=== PATIENT | female | born 1985 | race Caucasian/White ===

== ENCOUNTER 2016-05-27 07:40 | Day surgery (SDC) | payer OTHER ==
[2016-05-24 08:30] VITALS: BMI 28.3
[~2016-05-27 07:40] MED LIST: DEXAMETHASONE SOD PHOSPHATE 10 MG/ML 1 ML VIAL IV ONE; HEPARIN SODIUM,PORCINE 5,000 UNIT/ML 1 ML VIAL SQ ONE; HYDROmorphone 1 MG/ML 1 ML SYRINGE IVP PRN; LACTATED RINGERS 1,000 ML IV SCH; LIDOCAINE 1% 20 ML VIAL (10MG/ML) FOR IV START INTRADERMA PRN; MIDAZOLAM 2 MG/2 ML VIAL IV PRN; ONDANSETRON 4 MG/2 ML VIAL IVP ONE; Pre Op ABX Message 1 EACH MISC MISCELLANE ONE; SCOPOLAMINE 1.5MG/72HR PATCH TRANSDERM ONE
[2016-05-27] MEDS ORDERED: LIDOCAINE 1% 20 ML VIAL (10MG/ML) FOR IV START INTRADERMA ONE (08:03)
--- NOTE | 2016-05-27 09:01 | P.GSHP ---
History of Present Illness H&P Date: 05/27/16 Chief Complaint: Cholelithiasis, right upper quadrant pain This is a 30-year-old female who presents today for laparoscopic cholecystectomy. Patient has had complaints of right upper quadrant pain. Recent ultrasound shows evidence of cholelithiasis. 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 History of Any Multi-Drug Resistant Organisms: None Reported Past Surgical History: Section Past Anesthesia/Blood Transfusion Reactions: Postoperative Nausea & Vomiting ( PONV) Past Psychological History: No Psychological Hx Reported Smoking Status: Heavy tobacco smoker Past Alcohol Use History: Rare Additional Past Alcohol Use History / Comment(s): SMOKES 1PPD. SMOKING SINCE AGE 15 (15 YRS) Past Drug Use History: None Reported - Past Family History Mother Family Medical History: Asthma Medications and Allergies Home Medications Medication Instructions Recorded Confirmed Type Ibuprofen [Motrin] 600 mg PO DIRECTED PRN 05/24/16 05/27/16 History Albuterol Inhaler [Ventolin Hfa 1 - 2 puff INHALATION Q6HR PRN 05/27/16 History Inhaler] Allergies Allergy/AdvReac Type Severity Reaction Status Date / Time morphine Allergy Rash/Hives Verified 05/27/16 08:11 Surgical - Exam Vital Signs Temp Pulse Resp BP Pulse Ox 97.7 F 56 L 16 105/50 97 05/27/16 08:09 05/27/16 08:09 05/27/16 08:09 05/27/16 08:09 05/27/16 08:09 - General well developed, no distress - Eyes PERRL - ENT normal pinna - Neck no masses - Respiratory normal expansion - Cardiovascular Rhythm: regular - Abdomen Abdomen: soft, non tender Assessment and Plan Plan: Symptomatic cholelithiasis, chronic close sinus. We'll perform laparoscopic cholecystectomy
[2016-05-27] MEDS ORDERED: SUCCINYLCHOLINE CHLORIDE 100 MG/5 ML SYR IV ONE (09:23)
[2016-05-27] MEDS ORDERED: PROPOFOL 10 MG/ML 20 ML VIAL IV ONE (09:23)
[2016-05-27] MEDS ORDERED: GLYCOPYRROLATE 0.2 MG/ML 2 ML VIAL ONE (09:23)
[2016-05-27] MEDS ORDERED: NEOSTIGMINE 1 MG/ML 10 ML VIAL ONE (09:23)
[2016-05-27] MEDS ORDERED: MIDAZOLAM 2 MG/2 ML VIAL ONE (09:23)
[2016-05-27] MEDS ORDERED: LIDOCAINE 1% INJ 10MG/ML (20 ML MDV) ONE (09:23)
[2016-05-27] MEDS ORDERED: HYDROmorphone (PF) 1 MG/ML ONE (09:23)
[2016-05-27] MEDS ORDERED: fentaNYL (PF) 50 MCG/ML 2 ML AMP ONE (09:23)
[2016-05-27] MEDS ORDERED: ROCURONIUM BROMIDE 10 MG/ML 10 ML VIAL IV ONE (09:23)
[2016-05-27] MEDS ORDERED: SODIUM CHLORIDE 0.9% 50 ML with ceFAZolin 2,000 MG IV ONE ×2 (09:42)
[2016-05-27] MEDS ORDERED: BUPIVACAIN-EPI 0.25%-1:200,000 30 ML VIAL SQ ONE (09:43)
--- NOTE | 2016-05-27 10:06 | P.OP ---
Date of Procedure: 05/27/16 Preoperative Diagnosis: Cholelithiasis Cholecystitis Postoperative Diagnosis: Cholelithiasis Cholecystitis Procedure(s) Performed: Laparoscopic cholecystectomy Anesthesia: BENNY Surgeon: Shravan Toure Estimated Blood Loss (ml): 5 Pathology: other (Gallbladder) Condition: stable Disposition: PACU Description of Procedure: The patient was placed on the operating table. The patient received a general endotracheal tube anesthesia. The patients abdomen was prepped and draped in the usual sterile fashion. Through an infraumbilical stab incision, the fascia of the anterior abdominal wall was grasped with a pair of Kochers and then the Veress needle was placed in the peritoneal cavity. Position of the Veress needle was confirmed with positive drop test. The abdomen was then insufflated. After adequate insufflation, the 10 mm trocar was placed in the peritoneal cavity. Following this the laparoscope was placed in the peritoneal cavity. The patient was placed in the head-up, right side up position and then a 5 mm trocar was placed in the right lateral and right subcostal position under direct visualization. A 8 mm trocar was placed in the epigastric position. The gallbladder was grasped in the fundus and infundibulum. Traction on the gallbladder was placed in the lateral and the cephalad positions. The triangle of Calot was visualized.. The cystic duct was bluntly dissected until the union of the cystic duct and common bile duct was seen. The cystic duct was then divided and sealed with the Harmonic scissors. A PDS Endoloop was then placed throughout the cystic duct stump. The cystic artery divided and sealed with the Harmonic scissors. The gallbladder was then removed from the liver bed using Harmonic scissors. The gallbladder was then extracted through the epigastric port site. Operative field was checked for any bleeding spots and Harmonic scissors was used to coagulate the liver bed. The abdomen was irrigated. The trocars were removed. The skin was closed using interrupted 3-0 Vicryl suture. Dermabond dressing were applied. The patient tolerated the procedure well.
[2016-05-27 10:15] VITALS: TEMP 97.1
[2016-05-27 10:41] VITALS: RESP 16
[2016-05-27 11:42] VITALS: BP 117/68; PULSE 71
== END 2016-05-27 11:42 | disposition home or self-care (01) ==
LOC: OR 07:40
PROVIDERS: ATTEND Surgery
DX: K80.10 Calculus of gallbladder with chronic cholecystitis without obstruction (principal); J45.909 Unspecified asthma, uncomplicated; F17.200 Nicotine dependence, unspecified, uncomplicated; Z79.1 Long term (current) use of non-steroidal anti-inflammatories (NSAID); Z79.899 Other long term (current) drug therapy; Z88.5 Allergy status to narcotic agent
CPT/HCPCS: 81025; 88304; 47562; J2250; J1644; J1100; J2710; J2405; J2001; J3010; J1170; J0690; J0330; J2704

== ENCOUNTER → 2016-09-23 | Outpatient (CLI) | payer OTHER ==
[2016-09-23 12:00] LABS: Basophils # (A) 0.1 k/uL (0-0.2); Basophils % (A) 2 %; CH 28.2; CHCM 32.4; Eosinophils # (A) 0.1 k/uL (0-0.7); Eosinophils % (A) 1 %; HCT 45.2 % (34.0-46.0); HDW 2.69; HGB 14.8 gm/dL (11.4-16.0); Luc # (Auto) 0.16; Luc % (Auto) 2; Lymphocytes # (A) 2.8 k/uL (1.0-4.8); Lymphocytes % (A) 33 %; MCH 28.5 pg (25.0-35.0); MCHC 32.6 g/dL (31.0-37.0); MCV 87.4 fL (80.0-100.0); Mean Platelet Volume 7.8; Monocytes # (A) 0.3 k/uL (0-1.0); Monocytes % (A) 3 %; Neutrophils # (A) 4.9 k/uL (1.3-7.7); Neutrophils % (A) 59 %; RBC 5.17 m/uL (3.80-5.40); RDW 14.4 % (11.5-15.5); WBC 8.3 k/uL (3.8-10.6); WBC (Perox) 8.16
== END | disposition home or self-care (01) ==
LOC: LABPAT 11:19
PROVIDERS: ATTEND Obstetrics & Gynecology
DX: Z01.812 Encounter for preprocedural laboratory examination (principal)
CPT/HCPCS: 85025

== ENCOUNTER 2016-09-26 08:41 | Day surgery (SDC) | payer OTHER ==
[2016-09-23 10:57] VITALS: BMI 30.2
[~2016-09-26 08:41] MED LIST changes: -HEPARIN SODIUM,PORCINE 5,000 UNIT/ML 1 ML VIAL SQ ONE; -MIDAZOLAM 2 MG/2 ML VIAL IV PRN
[2016-09-26] MEDS ORDERED: LACTATED RINGERS 1,000 ML IV ONE ×2 (08:58→11:31)
--- NOTE | 2016-09-26 10:41 | P.HPOB ---
History of Present Illness H&P Date: 09/26/16 Chief Complaint: Cervical dysplasia and external condyloma Lisa is a 31-year-old female with high-grade squamous interested lesion. She is scheduled for LEEP colposcopy for same. It is also noted that she has several condyloma which we will remove at the same time at her request. Risks/ benefits/alternatives to this procedure were discussed with patient in detail and all questions are answered for prior to proceeding to the operative room and was discussed with patient that the larger lesions we will remove at the time of surgery. It is possible that we will leave some of the smaller ones to be frozen in the office depending on what everything looks like during the surgery. On physical exam vital signs are stable and afebrile. Heart regular, lungs clear, extremities without pain. Abdomen soft nontender. Pelvic exam as above. Assessment high-grade lesions on cervix and condyloma. Plan LEEP colposcopy an excisional biopsy of condyloma. 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 History of Any Multi-Drug Resistant Organisms: None Reported Past Surgical History: Section, Cholecystectomy Past Anesthesia/Blood Transfusion Reactions: Postoperative Nausea & Vomiting ( PONV) Past Psychological History: No Psychological Hx Reported Smoking Status: Heavy tobacco smoker Past Alcohol Use History: Rare Additional Past Alcohol Use History / Comment(s): SMOKES 1PPD. SMOKING SINCE AGE 15 (15 YRS) Past Drug Use History: None Reported - Past Family History Mother Family Medical History: Asthma Medications and Allergies Home Medications Medication Instructions Recorded Confirmed Type No Known Home Medications [No 09/23/16 09/23/16 History Known Home Medications] Allergies Allergy/AdvReac Type Severity Reaction Status Date / Time morphine Allergy Rash/Hives Verified 09/23/16 10:46 Exam Osteopathic Statement: *. No significant issues noted on an osteopathic structural exam other than those noted in the History and Physical/Consult. - Vital Signs Vital signs: Vital Signs Temp Pulse Resp BP Pulse Ox 09/26/16 08:52 97.8 F 75 18 109/68 99
[2016-09-26] MEDS ORDERED: LIDOCAINE 1% INJ 10MG/ML (20 ML MDV) ONE (11:06)
[2016-09-26] MEDS ORDERED: PROPOFOL 10 MG/ML 20 ML VIAL IV ONE (11:06)
[2016-09-26] MEDS ORDERED: ALBUTEROL INHALER 60 PUFF/8 GM INHALER INHALATION ONE (11:06)
[2016-09-26] MEDS ORDERED: MIDAZOLAM 2 MG/2 ML VIAL ONE (11:06)
[2016-09-26] MEDS ORDERED: HYDROmorphone (PF) 1 MG/ML ONE (11:06)
[2016-09-26] MEDS ORDERED: fentaNYL (PF) 50 MCG/ML 2 ML AMP ONE (11:06)
[2016-09-26] MEDS ORDERED: BUPIVACAINE (PF) 0.25% 30 ML VIAL SQ ONE ×2 (11:30)
[2016-09-26] MEDS ORDERED: IODINE/POTASS IOD (LUGOLS) BTL TOPICAL ONE (11:31)
--- NOTE | 2016-09-26 11:50 | P.OP ---
Date of Procedure: 09/26/16 Preoperative Diagnosis: High grade cervical lesion with condyloma on the mons pubis Postoperative Diagnosis: Same Procedure(s) Performed: LEEp colposcopy with excisional biopsy of 9 Condyloma Implants: Anesthesia: HKOA ZAPATA Surgeon: Xander Carlton Estimated Blood Loss (ml): 50 Pathology: other (cervical hat and condyloma) Condition: stable Disposition: same day Indications for Procedure: Operative Findings: pending tissue evaluation Description of Procedure: Lisa was taken to the operating suite where a general anesthetic was found be adequate. She was prepped and draped in the normal sterile fashion and placed in the dorsal lithotomy position. Initially a coated speculum was inserted into the vagina and the ectocervix was covered in Lugol solution. Colposcope was then brought in and cervix was evaluated. 2 cm loop was then used to excise the ectocervix and inner portion of the endocervix. Once this tissue was collected ball-tipped cautery was then used to obtain excellent hemostasis. Once hemostasis was obtained attention was turned to the condyloma. Using quarter percent Marcaine to inject beneath the condyloma, condyloma were elevated and excised using a 15 blade just below the skin surface. Once condyloma were excised approximately 6 of them required suture to reapproximate the skin these were the largest 6 of the condyloma the condyloma range from approximately 0.3 cm to 1.2 cm in size. Once completed instruments were removed sponge, lap, needle counts were all correct 2 and patient was then taken to the recovery room in stable and satisfactory condition. Plan - Discharge Summary New Discharge Prescriptions: Ibuprofen [Motrin] 600 mg PO Q6HR PRN #30 tab PRN Reason: Pain Discharge Medication List Ibuprofen [Motrin] 600 mg PO Q6HR PRN #30 tab 09/26/16 [Rx] Follow up Appointment(s)/Referral(s): Xander Carlton DO [Doctor of Osteopathic Medicine] - 1 Week Patient Instructions/Handouts: *Surgery [facility] - (Anesthesia) Discharge Instructions Outpatient Surgery, *[facility] - Scopalamine Patch Instructions Activity/Diet/Wound Care/Special Instructions: No heavy lifting and pelvic rest. If any high temperatures, heavy bleeding or severe pain call my office Discharge Disposition: HOME SELF-CARE
[2016-09-26 12:06] VITALS: TEMP 96.8
[2016-09-26 12:36] VITALS: RESP 18
[2016-09-26 12:37] VITALS: PULSE 94
[2016-09-26 12:38] VITALS: BP 112/65
== END 2016-09-26 13:05 | disposition home or self-care (01) ==
LOC: OR 08:41
PROVIDERS: ATTEND Obstetrics & Gynecology
DX: D06.7 Carcinoma in situ of other parts of cervix (principal); A63.0 Anogenital (venereal) warts; J45.909 Unspecified asthma, uncomplicated; J44.9 Chronic obstructive pulmonary disease, unspecified; R87.612 Low grade squamous intraepithelial lesion on cytologic smear of cervix (LGSIL); F17.200 Nicotine dependence, unspecified, uncomplicated; Z88.5 Allergy status to narcotic agent
CPT/HCPCS: 81025; 88305; 57460; J2250; J1100; J2405; J2001; J3010; J1170; J2704

== ENCOUNTER 2018-07-06 05:53 | Inpatient (IN) | payer OTHER ==
[2018-07-06] MEDS ORDERED: METHYLERGONOVINE 0.2 MG/ML 1 ML AMP IM PRN (06:07)
[2018-07-06] MEDS ORDERED: CARBOPROST TROMETHAMINE 250 MCG/ML 1 ML AMP IM PRN (06:07)
[2018-07-06] MEDS ORDERED: TERBUTALINE 1 MG/ML VIAL SQ PRN (06:07)
[2018-07-06] MEDS ORDERED: OXYTOCIN 10 UNIT/ML 1 ML VIAL IM PRN (06:07)
[2018-07-06] MEDS ORDERED: LIDOCAINE 0.5% (PF) 5 MG/ML (50 ML SDV) SQ PRN (06:07)
[2018-07-06] MEDS ORDERED: OXYTOCIN 30 UNITS/500 ML NS 30 UNIT in SALINE 1 500ML.BAG IV SCH (06:15)
[2018-07-06 06:16] VITALS: BMI 33.1
[2018-07-06] MEDS: LACTATED RINGERS 1,000 ML IV SCH ×2 (06:28→09:30)
[2018-07-06 06:36] LABS: Basophils # (A) 0.1 k/uL (0-0.2); Basophils % (A) 1 %; Eosinophils # (A) 0.1 k/uL (0-0.7); Eosinophils % (A) 1 %; HCT 36.7 % (34.0-46.0); HGB 12.2 gm/dL (11.4-16.0); Lymphocytes # (A) 2.1 k/uL (1.0-4.8); Lymphocytes % (A) 18 %; MCH 29.5 pg (25.0-35.0); MCHC 33.3 g/dL (31.0-37.0); MCV 88.5 fL (80.0-100.0); Mean Platelet Volume 7.8; Monocytes # (A) 0.4 k/uL (0-1.0); Monocytes % (A) 3 %; Neutrophils # (A) 8.8 k/uL (1.3-7.7); Neutrophils % (A) 76 %; Platelet Count 246 k/uL (150-450); RBC 4.15 m/uL (3.80-5.40); RDW 14.2 % (11.5-15.5); WBC 11.6 k/uL (3.8-10.6)
--- NOTE | 2018-07-06 08:27 | P.HPOB ---
History of Present Illness H&P Date: 07/06/18 Chief Complaint: IUP at 39-0/7 weeks, elective induction of labor This is a 32-year-old 5 para 4004 at 39-0/7 weeks with an estimated due date of 311 that presents for elective induction of labor. Patient has been receiving routine care with myself. Patient is a smoker. Today she presents for induction of labor she notes good movement denies contractions vaginal bleeding or loss of fluid. On blood work showed a blood type of B+, rubella immune, hepatitis B surface antigen is negative, HIV negative, RPR nonreactive, GBS negative. 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 History of Any Multi-Drug Resistant Organisms: None Reported Past Surgical History: Section, Cholecystectomy Past Anesthesia/Blood Transfusion Reactions: Postoperative Nausea & Vomiting ( PONV) Past Psychological History: No Psychological Hx Reported Smoking Status: Heavy tobacco smoker Past Alcohol Use History: Rare Additional Past Alcohol Use History / Comment(s): SMOKES 1PPD. SMOKING SINCE AGE 15 (15 YRS) Past Drug Use History: None Reported - Past Family History Mother Family Medical History: Asthma Medications and Allergies Allergies Allergy/AdvReac Type Severity Reaction Status Date / Time morphine Allergy Mild Rash/Hives Verified 07/06/18 06:06 Exam Osteopathic Statement: *. No significant issues noted on an osteopathic structural exam other than those noted in the History and Physical/Consult. Vital Signs Temp Pulse Resp BP 07/06/18 06:05 97.0 F L 89 16 108/74 Intake and Output 07/05/18 07/06/18 07/06/18 22:59 06:59 14:59 Other: Weight 74.389 kg Targeted physical exam was performed in the same general this is a well- nourished well-developed female in no acute distress she notes nonlabored breathing in her heart is known to have a regular rate and rhythm, abdomen is gravid and appropriate for gestational age, on cervical exam she is 3 , 70, -2 amniotomy is performed and clear fluid was obtained. heart tones are noted to be reassuring and she is deandre every 3 minutes. Results Result Diagrams: 07/06/18 06:20 Abnormal Lab Results - Last 24 Hours (Table) 07/06/18 Range/Units 06:20 WBC 11.6 H (3.8-10.6) k/uL Neutrophils # 8.8 H (1.3-7.7) k/uL Assessment and Plan (1) Term Current Visit: Yes Status: Acute Code(s): Z34.80 - ENCOUNTER FOR SUPRVSN OF NORMAL , UNSP TRIMESTER SNOMED Code(s): 76107741 (2) Smoker Current Visit: Yes Status: Acute Code(s): F17.200 - NICOTINE DEPENDENCE, UNSPECIFIED, UNCOMPLICATED SNOMED Code(s): 13383316 Plan: Patient is admitted to labor and delivery for Pitocin induction of labor, epidural per patient request. anticipate spontaneous vaginal delivery later today
[2018-07-06] MEDS ORDERED: ROPIVACAINE 5MG/ML 20ML VIAL ONE (08:59)
[2018-07-06] MEDS ORDERED: fentaNYL (PF) 50 MCG/ML 5 ML AMP ONE (08:59)
[2018-07-06] MEDS ORDERED: SODIUM CHLORIDE 0.9% 100 ML BAG ONE (08:59)
[2018-07-06] MEDS ORDERED: HYDROCORTISONE 2.5% RECTAL CREAM 30 GM TUBE RECTAL PRN (14:11)
[2018-07-06] MEDS ORDERED: ZOLPIDEM 5 MG TAB PO PRN (14:11)
[2018-07-06] MEDS ORDERED: diphenhydrAMINE 50 MG CAP PO PRN (14:11)
[2018-07-06] MEDS ORDERED: SIMETHICONE 80 MG CHEWABLE PO PRN (14:11)
[2018-07-06] MEDS ORDERED: BENZOCAINE/MENTHOL SPRAY 1 GM/SPRAY AEROSOL TOPICAL PRN (14:11)
[2018-07-06] MEDS ORDERED: diphenhydrAMINE 50 MG/ML 1 ML VIAL IVP PRN ×2 (14:11)
[2018-07-06] MEDS ORDERED: ACETAMINOPHEN TAB 325 MG TAB PO PRN (14:11)
[2018-07-06] MEDS ORDERED: LANOLIN CREAM 5 GM TUBE TOPICAL PRN (14:11)
[2018-07-06] MEDS ORDERED: WITCH HAZEL 1 EACH MED..PAD TOPICAL PRN (14:11)
[2018-07-06] MEDS ORDERED: diphenhydrAMINE 25 MG CAP PO PRN (14:11)
--- NOTE | 2018-07-06 14:14 | P.PROBDLV ---
Vaginal Delivery Note - . Vaginal Delivery Note: This is a 32-year-old 5 para 4004 at 39-0/7 weeks with an estimated due date of 07/13 that presented for elective induction of labor. Patient was admitted to labor and delivery and Pitocin induction of labor was begun. Patient underwent amniotomy and clear fluid was obtained. Patient progressed through labor eventually becoming uncomfortable and requesting an epidural. Patient had an epidural placed by anesthesia without difficulty. Patient progressed to complete and began pushing and had a normal spontaneous vaginal delivery of a viable female infant at 1359, weight of 6 lbs. 5 oz. with Apgars of 9 and 9 at one and 5 minutes respectively. After a two-minute delayed the umbilical cord was doubly clamped and cut and the placenta was delivered spontaneously intact with three-vessel cord being noted. Patient's uterus is known to be firm and below the umbilicus. Inspection the patient's vaginal vault a first-degree vaginal laceration along with a clitoral laceration was noted these were repaired with 4-0 chromic in the usual fashion. A red rubber catheter was used to drain the bladder of clear yellow urine which was passed easily. Estimated blood loss 300 mL. All counts were correct 2. Patient and tolerated delivery well and are resting comfortably
[2018-07-06] MEDS ORDERED: OXYTOCIN 20 UNITS/1000 ML NS 1,000 ML IV SCH (14:15)
[2018-07-06] MEDS: SENNOSIDES-DOCUSATE SODIUM 1 EACH TAB PO SCH (23:50)
[2018-07-07] MEDS: IBUPROFEN 600 MG TAB PO PRN ×2 (00:03→08:06)
[2018-07-07 06:53] LABS: Basophils % (A) 0 %; Eosinophils # (A) 0.1 k/uL (0-0.7); Eosinophils % (A) 1 %; HCT 32.8 % (34.0-46.0); HGB 10.4 gm/dL (11.4-16.0); Lymphocytes # (A) 1.4 k/uL (1.0-4.8); Lymphocytes % (A) 16 %; MCH 28.7 pg (25.0-35.0); MCHC 31.8 g/dL (31.0-37.0); MCV 90.1 fL (80.0-100.0); Mean Platelet Volume 7.6; Monocytes # (A) 0.4 k/uL (0-1.0); Monocytes % (A) 4 %; Neutrophils # (A) 6.9 k/uL (1.3-7.7); Neutrophils % (A) 78 %; Platelet Count 208 k/uL (150-450); RBC 3.64 m/uL (3.80-5.40); RDW 14.2 % (11.5-15.5); WBC 8.8 k/uL (3.8-10.6)
--- NOTE | 2018-07-07 10:20 | P.DS ---
Providers Date of admission: 07/06/18 05:53 Expected date of discharge: 07/07/18 Attending physician: Penelope Blanca Primary care physician: Stated None - Discharge Diagnosis(es) (1) Term Current Visit: Yes Status: Acute (2) Smoker Current Visit: Yes Status: Acute (3) Status post vaginal delivery Current Visit: Yes Status: Acute Hospital Course: This is a pleasant 32-year-old 5 para 4004 that presented to labor and delivery at 39 and 0 seconds sevenths weeks for elective induction of labor. Patient was admitted to labor and delivery and Pitocin induction of labor was begun. Patient underwent amniotomy and clear fluid was obtained. Patient pressed to complete began pushing and had a normal spontaneous vaginal delivery of a viable female at 1359, weight of 6 lbs. 5 oz. with Apgars of 9 and 9 at one and 5 minutes respectively. Patient did sustain a first-degree vaginal laceration along with a clitoral laceration which were repaired with 4- 0 chromic in normal fashion. Patient is feeling well this morning her course has been uneventful. She is a billing and voiding on this day #1. She states she is ready for discharge home. She is bottle feeding currently. Patient Condition at Discharge: Good Plan - Discharge Summary Discharge Rx Participant: No Follow up Appointment(s)/Referral(s): Penelope Blanca DO [Doctor of Osteopathic Medicine] - 4 Weeks Patient Instructions/Handouts: Vaginal Delivery (DC), Vaginal Delivery (GEN) Discharge Disposition: HOME SELF-CARE
[2018-07-07 12:25] VITALS: BP 120/64; PULSE 70; RESP 18; TEMP 97.8
[2018-07-07] MEDS: SENNOSIDES-DOCUSATE SODIUM 1 EACH TAB PO SCH (13:53)
== END 2018-07-07 14:59 | disposition home or self-care (01) | DRG 768 ==
LOC: 4FBP 05:53
PROVIDERS: ADMIT Obstetrics & Gynecology Obstetrics; ATTEND Obstetrics & Gynecology Obstetrics
PROC: 10E0XZZ Delivery of Products of Conception, External Approach (ICD-10-PCS; principal; 2018-07-06)
PROC: 0UQJXZZ Repair Clitoris, External Approach (ICD-10-PCS; 2018-07-06)
PROC: 0HQ9XZZ Repair Perineum Skin, External Approach (ICD-10-PCS; 2018-07-06)
PROC: 3E033VJ Introduction of Other Hormone into Peripheral Vein, Percutaneous Approach (ICD-10-PCS; 2018-07-06)
PROC: 10907ZC Drainage of Amniotic Fluid, Therapeutic from Products of Conception, Via Natural or Artificial Opening (ICD-10-PCS; 2018-07-06)
PROC: 00HU33Z Insertion of Infusion Device into Spinal Canal, Percutaneous Approach (ICD-10-PCS; 2018-07-06)
PROC: 3E0R3BZ Introduction of Anesthetic Agent into Spinal Canal, Percutaneous Approach (ICD-10-PCS; 2018-07-06)
DX: O34.211 Maternal care for low transverse scar from previous cesarean delivery (principal); Z37.0 Single live birth; O70.0 First degree perineal laceration during delivery; O71.89 Other specified obstetric trauma; Z3A.39 39 weeks gestation of pregnancy; O99.334 Smoking (tobacco) complicating childbirth; F17.210 Nicotine dependence, cigarettes, uncomplicated; O99.52 Diseases of the respiratory system complicating childbirth; J45.909 Unspecified asthma, uncomplicated; H91.91 Unspecified hearing loss, right ear; Z90.49 Acquired absence of other specified parts of digestive tract; Z88.5 Allergy status to narcotic agent; Z82.5 Family history of asthma and other chronic lower respiratory diseases
CPT/HCPCS: 85025; 86850; 86900; 86901

== ENCOUNTER 2018-07-08 20:13 | Emergency (ER) | payer OTHER ==
[2018-07-08 20:30] VITALS: BP 117/68; PULSE 83; RESP 18; TEMP 98.2
--- NOTE | 2018-07-08 21:26 | ED ---
Female Urogenital HPI - General Chief complaint: Urogenital Stated complaint: vaginal bleeding Time Seen by Provider: 07/08/18 20:31 Source: patient Mode of arrival: ambulatory Limitations: no limitations - History of Present Illness Initial comments: 32-year-old female presenting today for chief complaint of vaginal bleeding. Patient states she gave vaginally on 07/06/2018, 2 days prior she states that she did have slight tearing, she states she has never experienced this during a childbirth before. Pt . Patient states there was a dissolvable suture placed, she thought it was near her urethra. Patient denies episiotomy. Patient denies any heavy vaginal bleeding. She states there is a clearish pink blood that appears to be increase in comparison with her previous births. Patient was concerned about the bleeding and presented for evaluation. Patient states she is tender to palpation of the vagina. Patient denies any passage of large clots. Patient states she is changing her pad about every 2-4 hours. Patient denies dysuria, urgency, frequency, hematuria, bowel pain, fever, chills, night sweats, nausea, vomiting, chest pain, dyspnea, dyspnea on exertion, headache, visual changes or dizziness. Patient appears well upon arrival for signs acute distress. - Related Data Home Medications Medication Instructions Recorded Confirmed Acetaminophen Tab [Tylenol Tab] 650 mg PO Q6H PRN 07/08/18 07/08/18 Ibuprofen [Motrin Ib] 400 mg PO Q6H PRN 07/08/18 07/08/18 Allergies Allergy/AdvReac Type Severity Reaction Status Date / Time morphine Allergy Mild Rash/Hives Verified 07/08/18 21:00 Review of Systems ROS Statement: Those systems with pertinent positive or pertinent negative responses have been documented in the HPI. ROS Other: All systems not noted in ROS Statement are negative. 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 History of Any Multi-Drug Resistant Organisms: None Reported Past Surgical History: Section, Cholecystectomy Past Anesthesia/Blood Transfusion Reactions: Postoperative Nausea & Vomiting (PONV) Past Psychological History: No Psychological Hx Reported Smoking Status: Heavy tobacco smoker Past Alcohol Use History: Rare Past Drug Use History: None Reported - Past Family History Mother Family Medical History: Asthma General Exam - General Exam Comments Initial Comments: General: The patient is awake and alert, in no distress, and does not appear acutely ill. Eye: Pupils are equal, round and reactive to light, extra-ocular movements are intact. No nystagmus. There is normal conjunctiva bilaterally. No signs of icterus. Ears, nose, mouth and throat: There are moist mucous membranes and no oral lesions. Neck: The neck is supple, there is no tenderness or JVD. Cardiovascular: There is a regular rate and rhythm. No murmur, rub or gallop is appreciated. Respiratory: Lungs are clear to auscultation, respirations are non-labored, breath sounds are equal. No wheezes, stridor, rales, or rhonchi. Gastrointestinal: Soft, non-distended, non-tender abdomen without masses or organomegaly noted. There is no rebound or guarding present. No CVA tenderness. Bowel sounds are unremarkable. External vaginal exam: Suture at 7oclock in introitus, no bright red blood. No evidence of heavy vaginal bleeding. Mild serosanguineous fluid. Mild tenderness to palpation of external genitalia near suture. Musculoskeletal: Normal ROM, no tenderness. Strength 5/5. Sensation intact. Pulses equal bilaterally 2+. Neurological: A&O x 3. CN II-XII intact, There are no obvious motor or sensory deficits. Coordination appears grossly intact. Speech is normal. Skin: Skin is warm and dry and no rashes or lesions are noted. Psychiatric: Cooperative, appropriate mood & affect, normal judgment. Limitations: no limitations Course Vital Signs 07/08/18 20:28 Temperature 98.2 F Pulse Rate 83 Respiratory 18 Rate Blood Pressure 117/68 O2 Sat by Pulse 99 Oximetry Medical Decision Making - Medical Decision Making 32-year-old female with recent vaginal . Patient did have tearing of the introitus. Suture intact. Serosanguineous discharge. No heavy vaginal bleeding. This acidosis consistent with recent . Patient has no complaints of abdominal pain. No pedal patient the abdomen or uterus. No fever or chills night sweats. No overt infectious symptoms. At this time after di scussed the case in detail to take provider we feel this is normal findings post vaginal and patient is to f/u with OBGYN as scheduled and return for any abdominal pain, heavy bleeding/persistent bleeding, vaginal discharge, fever, chills or nightweats-or any other concerning symptoms. She states she is ready to get out of here. Pt discharged appearing well after discussing case in detail with Dr. Márquez. Patient verbalized understanding of all return parameters deny questions upon discharge. Disposition Clinical Impression: Vaginal bleeding Disposition: HOME SELF-CARE Condition: Good Instructions (If sedation given, give patient instructions): Vaginal Delivery ( DC) Additional Instructions: Please use medication as discussed. Please follow-up with Dr. Blanca as scheduled. Please return to emergency room if the symptoms increase or worsen or for any other concerns, fever, heavy bleeding, abdominal pain. Is patient prescribed a controlled substance at d/c from ED?: No Referrals: Shira Miranda MD [Primary Care Provider] - 1-2 days Penelope Blanca DO [Doctor of Osteopathic Medicine] - 1-2 days Time of Disposition: 21:26
== END 2018-07-08 21:30 | disposition home or self-care (01) ==
LOC: EC 20:13
DX: O72.2 Delayed and secondary postpartum hemorrhage (principal); O99.335 Smoking (tobacco) complicating the puerperium; F17.200 Nicotine dependence, unspecified, uncomplicated; Z88.5 Allergy status to narcotic agent
CPT/HCPCS: 99283

== ENCOUNTER 2018-07-12 13:32 | Emergency (ER) | payer OTHER ==
[2018-07-12 13:36] VITALS: BP 132/74; PULSE 82; RESP 18; TEMP 98.1
--- NOTE | 2018-07-12 15:39 | ED ---
General Adult HPI - General Chief complaint: Wound/Laceration Stated complaint: female Time Seen by Provider: 07/12/18 14:09 Source: patient, RN notes reviewed, old records reviewed Mode of arrival: ambulatory Limitations: no limitations - History of Present Illness Initial comments: 32-year-old female patient who presents one week after vaginal delivery presents to ED with bump and burning and vaginal region. Patient reports that this bump additionally ernst when she gets urine on it. Denies dysuria. Patient denies any other complaints today. Systemic: Pt denies fatigue, myalgia, fever/chills, rash. Pt denies weakness, night sweats, weight loss. Neuro: Pt denies headache, visual disturbances, syncope or pre-syncope. HEENT: Pt denies ocular discharge or irritation, otalgia, rhinorrhea, pharyngitis or notable lymphadenopathy. Cardiopulmonary: Pt denies chest pain, SOB, heart palpitations, dyspnea on exertion. Abdominal/GI: Pt denies abdominal pain, n/v/d. : Pt denies dysuria, burning w/ urination, frequency/urgency. Denies new onset urinary or bowel incontinence. MSK: Pt denies myalgia, loss of strength or function in extremities. Neuro: Pt denies new onset weakness, paresthesias. - Related Data Home Medications Medication Instructions Recorded Confirmed Acetaminophen Tab [Tylenol Tab] 650 mg PO Q6H PRN 07/08/18 07/08/18 Ibuprofen [Motrin Ib] 400 mg PO Q6H PRN 07/08/18 07/08/18 Previous Rx's Medication Instructions Recorded Acyclovir 400 mg PO Q8HR 10 Days #30 tablet 07/12/18 Allergies Allergy/AdvReac Type Severity Reaction Status Date / Time morphine Allergy Mild Rash/Hives Verified 07/12/18 13:36 Review of Systems ROS Statement: Those systems with pertinent positive or pertinent negative responses have been documented in the HPI. ROS Other: All systems not noted in ROS Statement are negative. 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 History of Any Multi-Drug Resistant Organisms: None Reported Past Surgical History: Section, Cholecystectomy Past Anesthesia/Blood Transfusion Reactions: Postoperative Nausea & Vomiting (PONV) Past Psychological History: No Psychological Hx Reported Smoking Status: Heavy tobacco smoker Past Alcohol Use History: Rare Past Drug Use History: None Reported - Past Family History Mother Family Medical History: Asthma General Exam - General Exam Comments Initial Comments: Constitutional: NAD, AOX3, Pt has pleasant affect. HEENT: NC/AT, trachea midline, neck supple, no lymphadenopathy. Posterior pharynx non erythematous, without exudates. External ears appear normal, without discharge. Mucous membranes moist. Eyes PERRLA, EOM intact. There is no scleral icterus. No pallor noted. Cardiopulmonary: RRR, no murmurs, rubs or gallops, no JVD noted. Lungs CTAB in anterior and posterior craig. No peripheral edema. Abdominal exam: Abdomen soft and non-distended. Abdomen non-tender to palpation in all 4 quadrants. Bowel sounds active in LLQ. No hepatosplenomegaly. No ecchymosis Neuro: CN II-XII grossly intact. No nuchal rigidity. MSK: No posterior calf tenderness bilaterally, homans sign negative bilaterally. Posterior tibialis and radial pulse +2 bilaterally. Sensation intact in upper and lower extremities. Full active ROM in upper and lower extremities, 5/5 stregnth. Gu: Genital exam performed by Valeria PUGA. She identified a solitary lesion consistent with HSV. No other pathologic findings. Limitations: no limitations Course Vital Signs 07/12/18 13:34 Temperature 98.1 F Pulse Rate 82 Respiratory 18 Rate Blood Pressure 132/74 O2 Sat by Pulse 100 Oximetry Medical Decision Making - Medical Decision Making 32-year-old female patient who presents one week after vaginal delivery presents to ED with bump and burning and vaginal region. Patient reports that this bump additionally ernst when she gets urine on it. Denies dysuria. Patient denies any other complaints today. Pt VSS, afebrile. Physical exam displayed: Genital exam performed by Valeria PUGA. She identified a solitary lesion consistent with HSV. No other pathologic findings. These signs were explained to patient in depth. Patient was understanding. Patient states that if it is acting at baseline, denies any change in behavior, conjunctivitis, any other abnormalities. Patient did not have a previous HSV diagnosis. Patient contacted her supervisor winter office, She explained these findings. Pt has an appointment scheduled with them tomorrow. Pt did have her examined for her first examination approximately 3 days ago. Patient to be treated for first onset of HSV. Patient not breast-feeding for this . 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 Patient to return to ED if new signs symptoms develop or if condition worsens in any way. Case discussed with Dr. Macdonald. Disposition Clinical Impression: HSV (herpes simplex virus) infection Disposition: HOME SELF-CARE Condition: Stable Instructions (If sedation given, give patient instructions): Genital Herpes Simplex (ED) Additional Instructions: Patient to adhere to previously discussed treatment plan and will take medication(s) as directed. Patient to follow up with PCP in 1-2 days. Patient to return to ED if symptoms do not improve. Please follow-up with primary care physician as well as SLITTING MACHINE OPERATOR HELPER tomorrow. Please attend scheduled appointment for infant with supervisor winter tomorrow as scheduled. Please return to ER if there is any concern about your own condition or the condition of the . Prescriptions: Acyclovir 400 mg PO Q8HR 10 Days #30 tablet Is patient prescribed a controlled substance at d/c from ED?: No Referrals: Shira Miranda MD [Primary Care Provider] - 1-2 days
== END 2018-07-12 16:00 | disposition home or self-care (01) ==
LOC: EC 13:32
DX: O98.53 Other viral diseases complicating the puerperium (principal); B00.9 Herpesviral infection, unspecified; O99.335 Smoking (tobacco) complicating the puerperium; F17.200 Nicotine dependence, unspecified, uncomplicated; Z88.5 Allergy status to narcotic agent
CPT/HCPCS: 99283

== ENCOUNTER 2019-12-31 11:11 | Outpatient (CLI) | payer OTHER ==
[2019-12-31] MEDS ORDERED: ACETAMINOPHEN IV (For NPO) 1,000 MG in EMPTY BAG 1 BAG IVPB STA (11:52)
[2019-12-31] MEDS ORDERED: LACTATED RINGERS 1,000 ML IV SCH (12:00)
[2019-12-31 12:01] LABS: Appearance,Urine Cloudy (Clear); Bacteria,Urine Occasional /hpf; Bilirubin,Urine Negative (Negative); Blood,Urine Small (Negative); Color,Urine Yellow; Glucose,Urine (UA) Negative (Negative); Ketones,Urine Negative (Negative); Leukocyte Esterase,Urine Moderate (Negative); Mucus,Urine Rare /hpf; Nitrite,Urine Negative (Negative); PH, Urine 6.5 (5.0-8.0); Protein,Urine Trace (Negative); RBC,Urine 6 /hpf (0-5); Specific Gravity,Urine 1.013 (1.001-1.035); Squamous Epithelial Cell,Urine 8 /hpf (0-4); Urobilinogen,Urine <2.0 mg/dL (<2.0); WBC,Urine 16 /hpf (0-5)
[2019-12-31 14:35] VITALS: BP 114/69; PULSE 88; RESP 16; TEMP 98.1
--- NOTE | 2020-02-09 09:33 | P.MSEPDOC ---
Presenting Problems - Arrival Data Date of Arrival on Unit: 12/31/19 Time of Arrival on Unit: 11:11 Mode of Transport: Wheelchair - Complaint OB-Reason for Admission/Chief Complaint: Pain Comment: pt arrived with left flank pain since 0530 this am, radiating to lower left abd Medical History - Information : 6 Para: 5 Term: 5 : 0 Abortions: Spontaneous or Elective: 0 Number of Living Children: 0 - Gestational Age Gestational Age by KAVYA (wks/days): 32 Weeks and 6 Days - History Complications: Smoker Review of Systems - Review of Systems Constitutional: No problems Breast: No problems ENT: No problems Cardiovascular: No problems Respiratory: No problems Gastrointestinal: No problems Genitourinary: No problems Musculoskeletal: No problems Neurological: No problems Skin: No problems Vital Signs - Temperature Temperature: 98.1 F Temperature Source: Temporal Artery Scan - Pulse Right Brachial Pulse Rate: 88 Pulse Assessment Method: Automatic Cuff - Respirations Respiratory Rate: 16 Oxygen Delivery Method: Room Air O2 Sat by Pulse Oximetry: 96 - Blood Pressure Right Arm Blood Pressure: 114/69 Blood Pressure Mean: 84 Blood Pressure Source: Automatic Cuff Medical Screen Scoring (Pre) - Cervical Exam Dilation: Exam Deferred Effacement: Exam Deferred Membranes: Intact - Uterine Contractions Frequency: N/A Duration: N/A Intensity: N/A - Maternal Vital Signs Maternal Temperature: N/A Maternal Blood Pressure: N/A Signs of Preeclampsia: N/A Maternal Respirations: N/A - Maternal Trauma Maternal Trauma: N/A - Assessment - Baby A Baseline FHR: 110 Heart Rate - NICHD Category: Category I (Normal) = 0 NST: Reactive Position: N/A Station: N/A - Total Score - Baby A Total Score - Baby A: 0 - Total Score - Baby B Total Score - Baby B: 0 - Total Score - Baby C Total Score - Baby C: 0 - Level of Risk - Baby A Level of Risk - Baby A: Low (0-5) - Level of Risk - Baby B Level of Risk - Baby B: Low (0-5) - Level of Risk - Baby C Level of Risk - Baby C: Low (0-5) Physician Notification (Pre) - Physician Notified Physician Notified Date: 12/31/19 Physician Notified Time: 13:30 New Order Received: Yes - Notification Comment Comment: pt had ua sent, IVF, offirmive, and kefzol iv, pt discharged home with minimal to no pain, will molded goods 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
== END 2019-12-31 13:45 | disposition home or self-care (01) ==
LOC: FBPOP 11:11
PROVIDERS: ATTEND Obstetrics & Gynecology Obstetrics
DX: O23.43 Unspecified infection of urinary tract in pregnancy, third trimester (principal); O99.333 Smoking (tobacco) complicating pregnancy, third trimester; Z3A.32 32 weeks gestation of pregnancy; F17.200 Nicotine dependence, unspecified, uncomplicated
CPT/HCPCS: 59025; 96361; 96365; 96367; 81001; 87086; G0463; J0690; J0131; 96366; 99214

== ENCOUNTER 2020-02-03 06:29 | Inpatient (IN) | payer OTHER ==
[2020-02-03 07:42] LABS: Appearance,Urine Clear (Clear); Bacteria,Urine Rare /hpf; Bilirubin,Urine Negative (Negative); Blood,Urine Trace (Negative); Color,Urine Yellow; Glucose,Urine (UA) Negative (Negative); Ketones,Urine Negative (Negative); Leukocyte Esterase,Urine Large (Negative); Mucus,Urine Occasional /hpf; Nitrite,Urine Negative (Negative); PH, Urine 6.5 (5.0-8.0); Protein,Urine Negative (Negative); RBC,Urine 12 /hpf (0-5); Specific Gravity,Urine 1.011 (1.001-1.035); Squamous Epithelial Cell,Urine 3 /hpf (0-4); Urobilinogen,Urine <2.0 mg/dL (<2.0); WBC,Urine 16 /hpf (0-5)
[2020-02-03] MEDS ORDERED: OXYTOCIN 10 UNIT/ML 1 ML VIAL IM PRN (08:35)
[2020-02-03] MEDS ORDERED: LIDOCAINE 0.5% (PF) 5 MG/ML (50 ML SDV) SQ PRN (08:35)
[2020-02-03] MEDS ORDERED: CARBOPROST TROMETHAMINE 250 MCG/ML 1 ML AMP IM PRN (08:35)
[2020-02-03] MEDS ORDERED: METHYLERGONOVINE 0.2 MG/ML 1 ML AMP IM PRN (08:35)
[2020-02-03] MEDS ORDERED: TERBUTALINE 1 MG/ML VIAL SQ PRN (08:35)
[2020-02-03] MEDS ORDERED: OXYTOCIN 30 UNITS/500 ML NS 30 UNIT in SALINE 1 500ML.BAG IV SCH (08:45)
[2020-02-03] MEDS: LACTATED RINGERS 1,000 ML IV SCH ×3 (08:59→14:42)
[2020-02-03 10:09] LABS: Basophils % (A) 0 %; Eosinophils # (A) 0.1 k/uL (0-0.7); Eosinophils % (A) 1 %; HCT 33.5 % (34.0-46.0); HGB 10.8 gm/dL (11.4-16.0); Hypochromasia Slight; Lymphocytes # (A) 2.2 k/uL (1.0-4.8); Lymphocytes % (A) 14 %; MCH 27.1 pg (25.0-35.0); MCHC 32.2 g/dL (31.0-37.0); Mean Platelet Volume 8.3; Monocytes # (A) 0.5 k/uL (0-1.0); Monocytes % (A) 3 %; Neutrophils # (A) 12.3 k/uL (1.3-7.7); Neutrophils % (A) 81 %; Platelet Count 284 k/uL (150-450); Poikilocytosis Slight; RBC 3.99 m/uL (3.80-5.40); RDW 14.5 % (11.5-15.5); WBC 15.3 k/uL (3.8-10.6)
[2020-02-03] MEDS ORDERED: SODIUM CHLORIDE 0.9% 100 ML BAG ONE (12:16)
[2020-02-03] MEDS ORDERED: fentaNYL (PF) 50 MCG/ML 5 ML AMP ONE (12:16)
[2020-02-03] MEDS ORDERED: ROPIVACAINE 5MG/ML 20ML VIAL ONE (12:16)
[2020-02-03] MEDS ORDERED: ROPIVACAINE 100 MG, fentaNYL (PF) 200 MCG in SODIUM CHLORIDE 0.9% 76 ML EPIDURAL ONE (12:55)
--- NOTE | 2020-02-03 13:11 | P.HPOB ---
History of Present Illness H&P Date: 02/03/20 Chief Complaint: IUP @ 37 5/7 weeks, labor This is a 34-year-old 6 para 5005 that presents to labor and delivery with complaints of regular contractions that began slowly about 2 days ago. Patient denies vaginal bleeding or loss of fluid. She is mainly complaining about right flank pain. Patient was noted to be 1 cm in the office last week. On exam she is 4/70/-2 station. Patient is deandre regularly. Patient has been receiving routine care with myself. Patient has a history of a primary for which she has successfully multiple times. 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 History of Any Multi-Drug Resistant Organisms: None Reported Past Surgical History: Section, Cholecystectomy Past Anesthesia/Blood Transfusion Reactions: No Reported Reaction Past Psychological History: No Psychological Hx Reported Smoking Status: Current every day smoker Past Alcohol Use History: Rare Additional Past Alcohol Use History / Comment(s): SMOKES 1PPD. SMOKING SINCE AGE 15 (15 YRS) Past Drug Use History: None Reported - Past Family History Mother Family Medical History: Asthma Medications and Allergies Home Medications Medication Instructions Recorded Confirmed Type Acetaminophen Tab [Tylenol Tab] 650 mg PO Q6H PRN 07/08/18 02/03/20 History Allergies Allergy/AdvReac Type Severity Reaction Status Date / Time morphine Allergy Mild Rash/Hives Verified 02/03/20 06:39 Exam Osteopathic Statement: *. No significant issues noted on an osteopathic structural exam other than those noted in the History and Physical/Consult. 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 heart tones are category 1 and she is deandre irregularly. Results Result Diagrams: 02/03/20 09:37 Abnormal Lab Results - Last 24 Hours (Table) 02/03/20 02/03/20 Range/Units 07:14 09:37 WBC 15.3 H (3.8-10.6) k/uL Hgb 10.8 L (11.4-16.0) gm/dL Hct 33.5 L (34.0-46.0) % Neutrophils # 12.3 H (1.3-7.7) k/uL Urine Blood Trace H (Negative) Ur Leukocyte Esterase Large H (Negative) Urine RBC 12 H (0-5) /hpf Urine WBC 16 H (0-5) /hpf Urine Bacteria Rare H (None) /hpf Urine Mucus Occasional H (None) /hpf Assessment and Plan (1) 37 weeks gestation of Current Visit: Yes Status: Acute Code(s): Z3A.37 - 37 WEEKS GESTATION OF SNOMED Code(s): 16140171 (2) Active labor Current Visit: Yes Status: Acute Code(s): JFB7594 - SNOMED Code(s): 887069060 Plan: Patient is admitted to labor and delivery, options for analgesia are discussed including epidural or Stadol. Patient desires epidural when uncomfortable. Anticipate spontaneous vaginal delivery.
[2020-02-03] MEDS ORDERED: ACETAMINOPHEN TAB 325 MG TAB PO PRN (16:41)
[2020-02-03] MEDS ORDERED: HYDROcodone/APAP 5-325MG 1 EACH TAB PO PRN (16:41)
[2020-02-03] MEDS ORDERED: BENZOCAINE/MENTHOL SPRAY 1 GM/SPRAY AEROSOL TOPICAL PRN (16:41)
[2020-02-03] MEDS ORDERED: diphenhydrAMINE 25 MG CAP PO PRN (16:41)
[2020-02-03] MEDS ORDERED: ZOLPIDEM 5 MG TAB PO PRN (16:41)
[2020-02-03] MEDS ORDERED: diphenhydrAMINE 50 MG CAP PO PRN (16:41)
[2020-02-03] MEDS ORDERED: diphenhydrAMINE 50 MG/ML 1 ML VIAL IVP PRN ×2 (16:41)
[2020-02-03] MEDS ORDERED: SIMETHICONE 80 MG CHEWABLE PO PRN (16:41)
[2020-02-03] MEDS ORDERED: LANOLIN CREAM 5 GM TUBE TOPICAL PRN (16:41)
[2020-02-03] MEDS ORDERED: HYDROCORTISONE 2.5% RECTAL CREAM 30 GM TUBE RECTAL PRN (16:41)
--- NOTE | 2020-02-03 16:44 | P.PROBDLV ---
Vaginal Delivery Note - . Vaginal Delivery Note: This 34-year-old 6 para 5005 at 37-5/7 weeks presented to labor and delivery earlier this morning with complaints of low back pain. Patient was noted to be 4 cm dilated. Patient was admitted to labor and delivery for labor. Patient underwent amniotomy and clear fluid was obtained. Patient progressed through labor eventually becoming uncomfortable and requesting epidural placement. Pitocin augmentation of labor was begun. Patient made slow progression to complete began pushing and had a normal spontaneous vaginal delivery of a viable male at 1630, weight is pending as the remains in the maternal abdomen. The was passed off to the maternal abdomen, after two-minute delay the umbilical cord was doubly clamped and cut. The placenta was then delivered spontaneously intact with three-vessel cord being noted. On inspection the patient's vaginal vault no lacerations were noted. The uterus is noted to be firm and below the umbilicus. Estimated blood loss 200 mL. Patient and tolerated delivery well and are resting comfortably.
[2020-02-03] MEDS ORDERED: OXYTOCIN 20 UNITS/1000 ML NS 1,000 ML IV SCH (16:45)
[2020-02-03 18:07] VITALS: RESP 16
[2020-02-03] MEDS: SENNOSIDES-DOCUSATE SODIUM 1 EACH TAB PO SCH (20:08)
[2020-02-03] MEDS: IBUPROFEN 600 MG TAB PO PRN (20:08)
[2020-02-04] MEDS: IBUPROFEN 600 MG TAB PO PRN ×3 (03:58→20:28)
[2020-02-04 08:44] LABS: Basophils # (A) 0.1 k/uL (0-0.2); Basophils % (A) 1 %; Eosinophils # (A) 0.1 k/uL (0-0.7); Eosinophils % (A) 1 %; HCT 29.5 % (34.0-46.0); HGB 9.7 gm/dL (11.4-16.0); Hypochromasia Slight; Lymphocytes # (A) 2.6 k/uL (1.0-4.8); Lymphocytes % (A) 20 %; MCH 27.3 pg (25.0-35.0); MCHC 32.7 g/dL (31.0-37.0); MCV 83.7 fL (80.0-100.0); Mean Platelet Volume 8.7; Monocytes # (A) 0.4 k/uL (0-1.0); Monocytes % (A) 3 %; Neutrophils # (A) 9.5 k/uL (1.3-7.7); Neutrophils % (A) 74 %; Platelet Count 265 k/uL (150-450); Poikilocytosis Slight; RBC 3.53 m/uL (3.80-5.40); RDW 14.6 % (11.5-15.5); WBC 12.9 k/uL (3.8-10.6)
--- NOTE | 2020-02-04 09:14 | P.DS ---
Providers Date of admission: 02/03/20 08:37 Expected date of discharge: 02/04/20 Attending physician: Penelope Blanca Primary care physician: Stated None - Discharge Diagnosis(es) (1) 37 weeks gestation of Current Visit: Yes Status: Acute (2) Active labor Current Visit: Yes Status: Acute (3) Status post vaginal delivery Current Visit: No Status: Acute Hospital Course: This is a 34-year-old 6 para 5005 that presented to labor and delivery at 37-5/7 weeks with complaints of contractions. Patient was noted to be 1 cm in the office prior in 4 cm here on labor and delivery. Patient was noted to be deandre irregularly but uncomfortable and noting back pain. Patient was admitted to labor and delivery and underwent amniotomy. Patient became uncomfortable and requested epidural placement. Epidural was placed without difficulty by the anesthesia department. A small amount of Pitocin was used to augment labor. Patient progressed to complete began pushing and had a normal spontaneous vaginal delivery of a viable male at 1630, weight of 6 lbs. 9 oz. with Apgars of 9 and 9 at one and 5 minutes respectively. Patient did not sustain any vaginal lacerations during delivery. On this day #1 she is ambulating and voiding without difficulty. She is tolerating a regular diet without nausea or vomiting. She states her pain is well-controlled and she would like discharge home at 24 hours. Patient Condition at Discharge: Good Plan - Discharge Summary New Discharge Prescriptions: No Action Acetaminophen Tab [Tylenol Tab] 650 mg PO Q6H PRN PRN Reason: Pain Discharge Medication List Acetaminophen Tab [Tylenol Tab] 650 mg PO Q6H PRN 07/08/18 [History] Follow up Appointment(s)/Referral(s): Penelope Blanca DO [Doctor of Osteopathic Medicine] - 4 Weeks Patient Instructions/Handouts: Vaginal Delivery (DC), Vaginal Delivery (GEN) Activity/Diet/Wound Care/Special Instructions: Patient can expect period Like bleeding . No tub baths or intercourse until 6 weeks . Patient is to follow-up in 4 weeks . If she has any concerns prior to her visit she is urged to call the office. Oral ibuprofen 6 her milligrams as needed for discomfort. Discharge Disposition: HOME SELF-CARE
[2020-02-04] MEDS: SENNOSIDES-DOCUSATE SODIUM 1 EACH TAB PO SCH ×2 (20:28→22:31)
[2020-02-05 00:48] VITALS: BP 110/63; PULSE 73; TEMP 98.3
== END 2020-02-05 07:30 | disposition home or self-care (01) | DRG 807 ==
LOC: FBPOP 06:29 → 4FBP 08:37
PROVIDERS: ADMIT Obstetrics & Gynecology Obstetrics; ATTEND Obstetrics & Gynecology Obstetrics
PROC: 00HU33Z Insertion of Infusion Device into Spinal Canal, Percutaneous Approach (ICD-10-PCS; principal; 2020-02-03)
PROC: 3E033VJ Introduction of Other Hormone into Peripheral Vein, Percutaneous Approach (ICD-10-PCS; principal; 2020-02-03)
PROC: 10907ZC Drainage of Amniotic Fluid, Therapeutic from Products of Conception, Via Natural or Artificial Opening (ICD-10-PCS; principal; 2020-02-03)
PROC: 3E0R3NZ Introduction of Analgesics, Hypnotics, Sedatives into Spinal Canal, Percutaneous Approach (ICD-10-PCS; principal; 2020-02-03)
PROC: 10E0XZZ Delivery of Products of Conception, External Approach (ICD-10-PCS; principal; 2020-02-03)
DX: O34.219 Maternal care for unspecified type scar from previous cesarean delivery (principal); Z37.0 Single live birth; O99.52 Diseases of the respiratory system complicating childbirth; O99.334 Smoking (tobacco) complicating childbirth; J45.909 Unspecified asthma, uncomplicated; H91.91 Unspecified hearing loss, right ear; F17.210 Nicotine dependence, cigarettes, uncomplicated; Z3A.37 37 weeks gestation of pregnancy; Z82.5 Family history of asthma and other chronic lower respiratory diseases; Z90.49 Acquired absence of other specified parts of digestive tract; Z88.5 Allergy status to narcotic agent
CPT/HCPCS: 59025; 81001; 85025; 86850; 86900; 86901; 99213